=== PATIENT | male | born 1960 | race Caucasian/White ===

== ENCOUNTER 2019-07-14 08:05 | Emergency (ER) | payer SELFPAY ==
[2019-07-14] MEDS ORDERED: Proparacaine 0.5% Opth 15 ML BOT ONE (08:31)
[2019-07-14] MEDS ORDERED: Fluorescein Opthalmic Strip ONE (08:31)
[2019-07-14] MEDS ORDERED: Erythromycin Base 0.5% Oint 1 GM TUBE ONE (08:59)
[2019-07-14] MEDS ORDERED: Adacel (T-DAP) 0.5 ML SYRINGE ONE (09:02)
== END 2019-07-14 09:12 | disposition home or self-care (01) ==
LOC: ERS 08:05
DX: S05.01XA Injury of conjunctiva and corneal abrasion without foreign body, right eye, initial encounter (principal); X58.XXXA Exposure to other specified factors, initial encounter
CPT/HCPCS: 90471; 90715; 99283